=== PATIENT | male | born 1945 | race Caucasian/White ===

== ENCOUNTER 2021-03-25 20:53 | Emergency (ER) | payer MEDICARE ==
[2021-03-25] MEDS ORDERED: Bacitracin Oint 1 GM U/D Packet TOP ONE (21:44)
--- NOTE | 2021-03-25 21:50 | EDM.PDOC ---
ED HPI GENERAL MEDICAL PROBLEM - General Chief Complaint: Laceration Stated Complaint: HEAD INJURY Time Seen by Provider: 03/25/21 21:48 Source of Information: Reports: Patient History Limitations: Reports: No Limitations - History of Present Illness INITIAL COMMENTS - FREE TEXT/NARRATIVE: p arrived with a laceration to the forehead. He was carrying his dog who is having difficulty ambulating and he fell against the screen door and ended up with a laceration. Onset: Today, Sudden Duration: Hour(s): Location: Reports: Face Associated Symptoms: Reports: No Other Symptoms, Other (pt was not knocked out. ) Left Eye Pain Score (Numeric/FACES): 2 - Related Data Allergies Allergy/AdvReac Type Severity Reaction Status Date / Time No Known Allergies Allergy Verified 03/25/21 21:25 Home Meds: Home Meds Losartan [Cozaar] 100 mg PO DAILY 03/25/21 [History] Omeprazole 40 mg PO DAILY 03/25/21 [History] amLODIPine Besylate [Amlodipine Besylate] 10 mg PO DAILY 03/25/21 [History] hydroCHLOROthiazide [Hydrochlorothiazide] 12.5 mg PO DAILY 03/25/21 [History] Past Medical History HEENT History: Reports: Cataract, Hard of Hearing Cardiovascular History: Reports: Hypertension Respiratory History: Reports: Asthma Gastrointestinal History: Reports: Other (See Below) Other Gastrointestinal History: ho's esophagus Musculoskeletal History: Reports: Arthritis - Past Surgical History HEENT Surgical History: Reports: Cataract Surgery, Naso-Sinus Surgery Social & Family History - Tobacco Use Tobacco Use Status *Q: Never Tobacco User - Caffeine Use Caffeine Use: Reports: Coffee - Alcohol Use Days Per Week of Alcohol Use: 3 Number of Drinks Per Day: 2 Total Drinks Per Week: 6 - Recreational Drug Use Recreational Drug Use: No ED ROS GENERAL - Review of Systems Review Of Systems: See Below Constitutional: Reports: No Symptoms HEENT: Reports: Other (pt has a facial laceration about 1 inch in length. ) Respiratory: Reports: No Symptoms Cardiovascular: Reports: No Symptoms Endocrine: Reports: No Symptoms GI/Abdominal: Reports: No Symptoms : Reports: No Symptoms Musculoskeletal: Reports: No Symptoms ED EXAM, SKIN/RASH Exam: See Below Text/Narrative:: pt hit his head on a screen door and has a 1 inch laceration on the forehead area. Exam Limited By: No Limitations General Appearance: Alert Skin: Other (pt has a 1 inch laceration on the forehed. ) Course - Vital Signs Last Recorded V/S: Last Vital Signs Temp 35.7 C L 03/25/21 21:22 Pulse 68 03/25/21 21:22 Resp 16 03/25/21 21:22 BP 170/72 H 03/25/21 21:22 Pulse Ox 96 03/25/21 21:22 - Orders/Labs/Meds Meds: Medications Discontinued Medications Generic Name Dose Route Start Last Admin Trade Name Nikko PRN Reason Stop Dose Admin Bacitracin 1 dose 03/25/21 21:44 03/25/21 21:55 Bacitracin Oint 1 Gm U/D Packet TOP 03/25/21 21:45 1 dose ONETIME ONE Administration Lidocaine HCl 5 ml 03/25/21 21:44 03/25/21 21:54 Lidocaine 1% 5 Ml Sdv INJECT 03/25/21 21:45 5 ml ONETIME ONE Administration - Re-Assessments/Exams Free Text/Narrative Re-Assessment/Exam: 03/25/21 22:17 the laceration was cleaned well and infiltrated with lidocaine the wound was brought together with 5-0 prolene and 5-0 chromic. It was dressed with bacatracin and a pressure dressing. Departure - Departure Time of Disposition: 22:14 Disposition: Home, Self-Care 01 Condition: Fair Clinical Impression: Laceration - Discharge Information Referrals: PCP,None [Primary Care Provider] - Forms: ED Department Discharge Care Plan Goals: leave pressure dressing on until tomorrow afternoon. may leave open to air or cover with a bandaid. suture removal in 6 days. Sepsis Event Note (ED) - Evaluation Sepsis Screening Result: No Definite Risk - Focused Exam Vital Signs: Vital Signs Temp Pulse Resp BP Pulse Ox 03/25/21 21:22 35.7 C L 68 16 170/72 H 96 03/25/21 21:19 35.7 C L 68 16 170/72 H 96
== END 2021-03-25 22:39 | disposition home or self-care (01) ==
LOC: JP.ED 20:53
DX: S01.81XA Laceration without foreign body of other part of head, initial encounter (principal); I10 Essential (primary) hypertension; Z79.899 Other long term (current) drug therapy; W18.09XA Striking against other object with subsequent fall, initial encounter
CPT/HCPCS: 12011; 99282-25

== ENCOUNTER 2024-02-20 11:26 | Emergency (ER) | payer MEDICARE ==
[2024-02-20 14:26] LABS: BASOPHILS ABSOLUTE AUTO 0.04 K/uL (0.00-0.10); BASOPHILS PERCENT AUTO 0.4 % (0.1-1.3); EOSINOPHILS ABSOLUTE AUTO 0.11 K/uL (0.00-0.40); EOSINOPHILS PERCENT AUTO 1.1 % (0.0-5.4); HEMATOCRIT 38.7 % (38.4-49.7); HEMOGLOBIN 13.8 g/dL (12.9-16.9); IMMATURE GRAN ABSOLUTE AUTO 0.03 K/uL (0.00-0.23); IMMATURE GRAN PERCENT AUTO 0.3 % (0.0-0.7); LYMPHOCYTES ABSOLUTE AUTO 1.57 K/uL (0.8-3.3); LYMPHOCYTES PERCENT AUTO 16.4 % (11.4-47.7); MEAN CORPUSCULAR HEMOGLOBIN 31.3 pg (31.6-35.5); MEAN CORPUSCULAR HGB CONC 35.7 g/dL (31.6-35.5); MEAN CORPUSCULAR VOLUME 87.8 fL (81.4-99.0); MONOCYTES ABSOLUTE AUTO 0.72 K/uL (0.20-0.90); MONOCYTES PERCENT AUTO 7.5 % (3.3-12.6); NEUTROPHILS ABSOLUTE AUTO 7.12 K/uL (1.0-7.6); NEUTROPHILS PERCENT AUTO 74.3 % (40.0-78.1); PLATELET COUNT,PLT 247 K/uL (130-375); RED BLOOD CELL COUNT 4.41 M/uL (4.14-5.76); WHITE BLOOD CELL COUNT,WBC 9.6 K/uL (3.2-11.0)
[2024-02-20 14:41] LABS: ANION GAP 7.7 mmol/L (5.0-14.0); BLOOD UREA NITROGEN,BUN 16 mg/dL (7-18); CALCIUM 9.6 mg/dL (8.5-10.1); CARBON DIOXIDE,CO2 28 mmol/L (21-32); CHLORIDE,CL 104 mmol/L (100-108); CREATININE 0.9 mg/dL (0.8-1.3); ESTIMATED GFR 87 mL/min (>60); GLUCOSE RANDOM 105 mg/dL (74-106); POTASSIUM,K 4.4 mmol/L (3.6-5.2); SODIUM,NA 140 mmol/L (140-148)
== END 2024-02-20 16:06 | disposition home or self-care (01) ==
LOC: JP.ED 11:26
DX: I10 Essential (primary) hypertension (principal); K21.9 Gastro-esophageal reflux disease without esophagitis; Z79.899 Other long term (current) drug therapy; Z86.16 Personal history of COVID-19
CPT/HCPCS: 36415; 70450; 70450-26; 71046; 71046-26; 80048; 84484; 85025; 93005; 99284

== ENCOUNTER 2024-11-20 06:54 | Day surgery (SDC) | payer MEDICARE ==
[2024-11-20] MEDS ORDERED: fentaNYL 100 MCG/2 ML SDV ONE (07:26)
[2024-11-20] MEDS ORDERED: Propofol 200 MG/20 ML SDV ONE ×2 (07:26→08:22)
[2024-11-20] MEDS: Lactated Ringers 1,000 ML IV SCH (07:52)
[2024-11-20] MEDS ORDERED: Glycopyrrolate 0.2 MG/ML 5 ML MDV ONE (08:28)
== END 2024-11-20 10:20 | disposition home or self-care (01) ==
LOC: JP.SDS 06:54
PROVIDERS: ATTEND Surgery
DX: Z12.11 Encounter for screening for malignant neoplasm of colon (principal); D12.2 Benign neoplasm of ascending colon; D12.4 Benign neoplasm of descending colon; K63.5 Polyp of colon; K44.9 Diaphragmatic hernia without obstruction or gangrene; K22.70 Barrett's esophagus without dysplasia; I10 Essential (primary) hypertension; K21.9 Gastro-esophageal reflux disease without esophagitis; Z79.899 Other long term (current) drug therapy
CPT/HCPCS: 00813-QZ; 88305; J1596; J2704; J3010; J7120